=== PATIENT | male | born 1990 | race African-American/Black ===

== ENCOUNTER 2024-01-17 13:20 | Observation (INO) | payer OTHER ==
--- NOTE | 2024-01-17 13:58 | ED ---
Abdominal Pain HPI - General Source: patient, RN notes reviewed Mode of arrival: ambulatory Limitations: no limitations <Heavenly Bass - Last Filed: 01/17/24 13:57> - General Source: patient, RN notes reviewed Mode of arrival: ambulatory Limitations: no limitations <Narda Vences - Last Filed: 01/18/24 05:20> - General Chief Complaint: Abdominal Pain Stated Complaint: Post-op complications Time Seen by Provider: 01/17/24 13:57 - History of Present Illness Initial Comments: Quick Note: This is a 33-year-old male who presents to the emergency department for abdominal pain, constipation, and difficulty with urination. Symptoms started 2 days ago. States that whenever he tries to have a bowel movement it is incredibly painful. (Heavenly Bass) 33-year-old male presents to the emergency department for evaluation of abdominal pain and constipation. Patient states that the symptoms have been going on for the last 4 days. He notes that he has not had a bowel movement in 4 days. Patient states that most of his pain is in his lower abdomen and rectum when he attempts to have a bowel movement. He does admit to passing flatulence. He denies fever, admits to chills. Denies nausea, vomiting. (Narda Vences) - Related Data Allergies Allergy/AdvReac Type Severity Reaction Status Date / Time acetaminophen [From Tylenol] Allergy Nausea & Verified 01/17/24 13:42 Vomiting & Diarrhea haloperidol [From Haldol] Allergy Nausea & Verified 01/17/24 13:42 Vomiting prochlorperazine Allergy Nausea & Verified 01/17/24 13:42 [From Compazine] Vomiting metoclopramide [From Reglan] AdvReac Nausea & Verified 01/17/24 13:42 Vomiting & Diarrhea Review of Systems ROS Other: All systems not noted in ROS Statement are negative. <Heavenly Bass - Last Filed: 01/17/24 13:57> ROS Other: All systems not noted in ROS Statement are negative. <Narda Vences - Last Filed: 01/18/24 05:20> ROS Statement: Those systems with pertinent positive or pertinent negative responses have been documented in the HPI. Past Medical History Past Medical History: Asthma, Hypertension History of Any Multi-Drug Resistant Organisms: None Reported Past Surgical History: Joint Replacement, Orthopedic Surgery Past Psychological History: No Psychological Hx Reported Smoking Status: Current every day smoker Past Alcohol Use History: None Reported Past Drug Use History: Marijuana <Heavenly Bass - Last Filed: 01/17/24 13:57> General Exam Limitations: no limitations <Heavenly Bass - Last Filed: 01/17/24 13:57> Limitations: no limitations General appearance: alert, in no apparent distress Head exam: Present: atraumatic, normocephalic, normal inspection Eye exam: Present: normal appearance, PERRL, EOMI. Absent: scleral icterus, conjunctival injection, periorbital swelling ENT exam: Present: normal exam, mucous membranes moist Respiratory exam: Present: normal lung sounds bilaterally. Absent: respiratory distress, wheezes, rales, rhonchi, stridor Cardiovascular Exam: Present: regular rate, normal rhythm, normal heart sounds. Absent: systolic murmur, diastolic murmur, rubs, gallop, clicks GI/Abdominal exam: Present: distended, tenderness, hyperactive bowel sounds. Absent: guarding, rebound, rigid Extremities exam: Present: normal inspection, full ROM, normal capillary refill. Absent: tenderness, pedal edema, joint swelling, calf tenderness Neurological exam: Present: alert, oriented X3 Psychiatric exam: Present: normal affect, normal mood Skin exam: Present: warm, dry, intact, normal color. Absent: rash <Narda Vences - Last Filed: 01/18/24 05:20> - General Exam Comments Initial Comments: Visual Physical Exam Vital signs reviewed General: Well-appearing, nontoxic, no acute distress. Head: Normocephalic, atraumatic Eyes: PERRLA, EOMI ENT: Airway patent Chest: Nonlabored breathing Skin: No visual rash, normal skin tone Neuro: Alert and oriented 3 Musculoskeletal: No gross abnormalities (Heavenly Bass) Course Vital Signs 01/17/24 01/17/24 01/17/24 13:38 18:35 22:14 Temperature 97.6 F 99.9 F H Pulse Rate 91 67 60 Respiratory 20 16 18 Rate Blood Pressure 151/105 139/103 121/62 O2 Sat by Pulse 99 98 96 Oximetry 01/17/24 01/18/24 23:25 01:03 Temperature Pulse Rate 62 59 L Respiratory 16 18 Rate Blood Pressure 140/84 134/99 O2 Sat by Pulse 97 Oximetry Medical Decision Making <Heavenly Bass - Last Filed: 01/17/24 13:57> - Lab Data Result diagrams: 01/17/24 18:54 01/17/24 18:54 <FrankietyeshaNarda - Last Filed: 01/18/24 05:20> - Medical Decision Making I performed the QuickNote portion of this chart. Signed Heavenly Bass PA-C. (Heavenly Bass) Was pt. sent in by a medical professional or institution ([facility], [facility], urgent care, hospital, or long term...) When possible be specific @ -No Did you speak to anyone other than the patient for history (EMS, parent, family, police, friend...)? What history was obtained from this source @ -No Did you review nursing and triage notes (agree or disagree)? Why? @ -I reviewed and agree with nursing and triage notes Were old charts reviewed (outside hosp., previous admission, EMS record, old EKG, old radiological studies, urgent care reports/EKG's, long term records)? Report findings @ -No old charts were reviewed Differential Diagnosis (chest pain, altered mental status, abdominal pain women, abdominal pain men, vaginal bleeding, weakness, fever, dyspnea, syncope, headache, dizziness, GI bleed, back pain, seizure, CVA, palpatations, mental health, musculoskeletal)? @ -Differential Abdominal Pain Men: Appendicitis, cholecystitis, diverticulosis, ischemic bowel, pancreatitis, hepatitis, UTI, gastroenteritis, AAA, incarcerated hernia, bowel obstruction, constipation, inflammatory bowel, hepatitis, peptic ulcer disease, splenic infarction, perforated viscus, testicular torsion, this is not meant to be an all-inclusive list EKG interpreted by me (3pts min.). @ -None X-rays interpreted by me (1pt min.). @ -KUB x-ray shows large stool burden with nonobstructive bowel gas pattern CT interpreted by me (1pt min.). @ -CT abdomen pelvis shows large stool burden, stool within the rectum with wall thickening, consistent with stercoral colitis U/S interpreted by me (1pt. min.). @ -None done What testing was considered but not performed or refused? (CT, X-rays, U/S, labs)? Why? @ -None What meds were considered but not given or refused? Why? @ -None Did you discuss the management of the patient with other professionals (professionals i.e. , PA, [facility], lab, RT, psych nurse, social media marketing manager, sludge control operator, teacher, purchasing officer, case fitter)? Give summary @ -Management discussed with surgery, Dr. Cao patient can trial outpatient treatment versus inpatient with surgery in consultation. Management discussed with [facility] who is accepting of the admission Was smoking cessation discussed for >3mins.? @ -No Was critical care preformed (if so, how long)? @ -No Were there social determinants of health that impacted care today? How? (Homel essness, low income, unemployed, alcoholism, drug addiction, transportation, low edu. Level, literacy, decrease access to med. care, [facility], rehab)? @ -No Was there de-escalation of care discussed even if they declined (Discuss DNR or withdrawal of care, Hospice)? DNR status @ -No What co-morbidities impacted this encounter? (DM, HTN, Smoking, COPD, CAD, Cancer, CVA, ARF, Chemo, Hep., AIDS, mental health diagnosis, sleep apnea, morbid obesity)? @ -None Was patient admitted / discharged? Hospital course, mention meds given and route, prescriptions, significant lab abnormalities, going to OR and other pertinent info. @ -Admitted observation. Patient presented to the emergency department for evaluation of abdominal pain and constipation. Laboratory studies obtained which show an unremarkable CBC, CMP, UA. Patient underwent KUB x-ray which showed a large stool burden. CT abdomen pelvis shows large stool burden, stool within the rectum with wall thickening consistent with stercoral colitis. This was discussed with surgery, Dr. Cao can trial outpatient treatment first inpatient with surgical consultation. Patient will likely remain in the hospital due to the discomfort. Discussed with patient that IV narcotic medication is going to make the problem worse. He was provided fluids and antibiotics for this issue. He will be admitted observation with surgical consultation. Patient understanding agreeable plan. Patient stable at time of admission. Case discussed with Dr. Lemon Undiagnosed new problem with uncertain prognosis? @ -No Drug Therapy requiring intensive monitoring for toxicity (Heparin, Nitro, Insulin, Cardizem)? @ -No Were any procedures done? @ -No Diagnosis/symptom? @ -Stercoral colitis Acute, or Chronic, or Acute on Chronic? @ -Acute Uncomplicated (without systemic symptoms) or Complicated (systemic symptoms)? @ -Uncomplicated Side effects of treatment? @ -No Exacerbation, Progression, or Severe Exacerbation? @ -No Poses a threat to life or bodily function? How? (Chest pain, USA, [place], pneumonia, PE, COPD, DKA, ARF, appy, cholecystitis, CVA, Diverticulitis, Homicidal, Suicidal, threat to staff... and all critical care pts) @ -No (Narda Vences) - Lab Data Lab Results 01/17/24 01/17/24 01/17/24 Range/Units 18:54 18:54 18:54 WBC 7.8 (3.8-10.6) k/uL RBC 4.73 (4.30-5.90) m/uL Hgb 13.7 (13.0-17.5) gm/dL Hct 43.6 (39.0-53.0) % MCV 92.2 (80.0-100.0) fL MCH 29.1 (25.0-35.0) pg MCHC 31.5 (31.0-37.0) g/dL RDW 13.6 (11.5-15.5) % Plt Count 461 H (150-450) k/uL MPV 7.4 Neutrophils % 71 % Lymphocytes % 19 % Monocytes % 5 % Eosinophils % 3 % Basophils % 1 % Neutrophils # 5.5 (1.3-7.7) k/uL Lymphocytes # 1.5 (1.0-4.8) k/uL Monocytes # 0.4 (0-1.0) k/uL Eosinophils # 0.2 (0-0.7) k/uL Basophils # 0.0 (0-0.2) k/uL Sodium 137 (137-145) mmol/L Potassium 4.0 (3.5-5.1) mmol/L Chloride 101 (98-107) mmol/L Carbon Dioxide 31 H (22-30) mmol/L Anion Gap 5 mmol/L BUN 7 L (9-20) mg/dL Creatinine 0.60 L (0.66-1.25) mg/dL Est GFR (CKD-EPI)AfAm >90 (>60 ml/min/1.73 sqM) Est GFR (CKD-EPI)NonAf >90 (>60 ml/min/1.73 sqM) Glucose 77 (74-99) mg/dL Plasma Lactic Acid Beau 1.3 (0.7-2.0) mmol/L Calcium 9.1 (8.4-10.2) mg/dL Total Bilirubin 0.3 (0.2-1.3) mg/dL AST 22 (17-59) U/L ALT 17 (4-49) U/L Alkaline Phosphatase 72 (38-126) U/L Total Protein 6.7 (6.3-8.2) g/dL Albumin 3.9 (3.5-5.0) g/dL Amylase 66 (30-110) U/L Lipase 25 (23-300) U/L Urine Color Urine Appearance (Clear) Urine pH (5.0-8.0) Ur Specific [place] (1.001-1.035) Urine Protein (Negative) Urine Glucose (UA) (Negative) Urine Ketones (Negative) Urine Blood (Negative) Urine Nitrite (Negative) Urine Bilirubin (Negative) Urine Urobilinogen (<2.0) mg/dL Ur Leukocyte Esterase (Negative) 01/17/24 Range/Units 19:35 WBC (3.8-10.6) k/uL RBC (4.30-5.90) m/uL Hgb (13.0-17.5) gm/dL Hct (39.0-53.0) % MCV (80.0-100.0) fL MCH (25.0-35.0) pg MCHC (31.0-37.0) g/dL RDW (11.5-15.5) % Plt Count (150-450) k/uL MPV Neutrophils % % Lymphocytes % % Monocytes % % Eosinophils % % Basophils % % Neutrophils # (1.3-7.7) k/uL Lymphocytes # (1.0-4.8) k/uL Monocytes # (0-1.0) k/uL Eosinophils # (0-0.7) k/uL Basophils # (0-0.2) k/uL Sodium (137-145) mmol/L Potassium (3.5-5.1) mmol/L Chloride (98-107) mmol/L Carbon Dioxide (22-30) mmol/L Anion Gap mmol/L BUN (9-20) mg/dL Creatinine (0.66-1.25) mg/dL Est GFR (CKD-EPI)AfAm (>60 ml/min/1.73 sqM) Est GFR (CKD-EPI)NonAf (>60 ml/min/1.73 sqM) Glucose (74-99) mg/dL Plasma Lactic Acid Beau (0.7-2.0) mmol/L Calcium (8.4-10.2) mg/dL Total Bilirubin (0.2-1.3) mg/dL AST (17-59) U/L ALT (4-49) U/L Alkaline Phosphatase (38-126) U/L Total Protein (6.3-8.2) g/dL Albumin (3.5-5.0) g/dL Amylase (30-110) U/L Lipase (23-300) U/L Urine Color Colorless Urine Appearance Clear (Clear) Urine pH 7.5 (5.0-8.0) Ur Specific [place] 1.011 (1.001-1.035) Urine Protein Negative (Negative) Urine Glucose (UA) Negative (Negative) Urine Ketones Negative (Negative) Urine Blood Negative (Negative) Urine Nitrite Negative (Negative) Urine Bilirubin Negative (Negative) Urine Urobilinogen <2.0 (<2.0) mg/dL Ur Leukocyte Esterase Negative (Negative) Disposition <Heavenly Bass - Last Filed: 01/17/24 13:57> Is patient prescribed a controlled substance at d/c from ED?: No <Narda Vences - Last Filed: 01/18/24 05:20> Clinical Impression: Stercoral colitis Disposition: ADMITTED IP TO THIS HOSP Condition: Stable
--- NOTE | 2024-01-17 14:28 | XR ---
EXAMINATION TYPE: XR KUB DATE OF EXAM: 01/17/2024 COMPARISON: NONE HISTORY: Constipation TECHNIQUE: One view abdominal series FINDINGS: The osseous structures are intact. The bowel gas pattern is nonspecific. Lung bases are clear. Exte nsive retained stool burden. Bilateral hip replacement surgery. IMPRESSION: 1. Nonspecific abdomen. No obstruction. Correlate for constipation.
[2024-01-17 19:00] LABS: Basophils % (A) 1 %; Eosinophils # (A) 0.2 k/uL (0-0.7); Eosinophils % (A) 3 %; HCT 43.6 % (39.0-53.0); HGB 13.7 gm/dL (13.0-17.5); Lymphocytes # (A) 1.5 k/uL (1.0-4.8); Lymphocytes % (A) 19 %; MCH 29.1 pg (25.0-35.0); MCHC 31.5 g/dL (31.0-37.0); MCV 92.2 fL (80.0-100.0); Mean Platelet Volume 7.4; Monocytes # (A) 0.4 k/uL (0-1.0); Monocytes % (A) 5 %; Neutrophils # (A) 5.5 k/uL (1.3-7.7); Neutrophils % (A) 71 %; Platelet Count 461 k/uL (150-450); RBC 4.73 m/uL (4.30-5.90); RDW 13.6 % (11.5-15.5); WBC 7.8 k/uL (3.8-10.6)
[2024-01-17 19:24] LABS: ALT 17 U/L (4-49); AST 22 U/L (17-59); African American GFR (CKD) >90 (>60 ml/min/1.73 sqM); Albumin 3.9 g/dL (3.5-5.0); Alkaline Phosphatase 72 U/L (38-126); Amylase 66 U/L (30-110); Anion Gap 5 mmol/L; Blood Urea Nitrogen 7 mg/dL (9-20); Calcium 9.1 mg/dL (8.4-10.2); Carbon Dioxide 31 mmol/L (22-30); Chloride 101 mmol/L (98-107); Glucose 77 mg/dL (74-99); Lipase 25 U/L (23-300); Non-African American GFR(CKD) >90 (>60 ml/min/1.73 sqM); Sodium 137 mmol/L (137-145); Total Bilirubin 0.3 mg/dL (0.2-1.3); Total Protein 6.7 g/dL (6.3-8.2)
[2024-01-17] MEDS: SODIUM CHLORIDE 0.9% 2,000 ML IV ONE (20:04)
[2024-01-17] MEDS: ONDANSETRON 4 MG/2 ML VIAL IVP STA (20:07)
[2024-01-17] MEDS: MORPHINE SULFATE 4 MG/ML SYRINGE IVP STA (20:08)
[2024-01-17 20:11] LABS: Appearance,Urine Clear (Clear); Bilirubin,Urine Negative (Negative); Blood,Urine Negative (Negative); Color,Urine Colorless; Glucose,Urine (UA) Negative (Negative); Ketones,Urine Negative (Negative); Leukocyte Esterase,Urine Negative (Negative); Nitrite,Urine Negative (Negative); PH, Urine 7.5 (5.0-8.0); Protein,Urine Negative (Negative); Specific Gravity,Urine 1.011 (1.001-1.035); Urobilinogen,Urine <2.0 mg/dL (<2.0)
--- NOTE | 2024-01-17 20:38 | CT ---
EXAMINATION TYPE: CT abdomen pelvis w con CT DLP: 837.7 mGycm, Automated exposure control for dose reduction was used. DATE OF EXAM: 01/17/2024 8:25 PM COMPARISON: None CLINICAL INDICATION:Male, 33 years old with history of abd pain, constipation; Constipation. TECHNIQUE: Axial CT abdomen pelvis w con;Sagittal and coronal reformats were created on a separate w orkstation. Contrast used:100 mL of Isovue 300 with IV Contrast, (none if empty) Oral contrast used: without Oral Contrast (none if empty) FINDINGS: LOWER CHEST: Unremarkable ABDOMEN LIVER: Unremarkable GALLBLADDER AND BILE DUCTS: Unremarkable. PANCREAS: Unremarkable. SPLEEN: Unremarkable. ADRENAL GLANDS: Unremarkable. KIDNEYS AND URETERS: Nonobstructing left renal calculi measuring up to 4 mm. No right renal calculi. No obstructive uropathy.. PELVIS BLADDER: Unremarkable REPRODUCTIVE: Unremarkable. ABDOMEN & PELVIS STOMACH AND BOWEL: No evidence of bowel obstruction. Large stool burden in the: Particularly rectum w ith fecaloma measuring up to 6.6 cm in transverse dimension. There is ome Fat stranding changes aroun d the rectum with wall thickening up to 4 mm. PERITONEUM/RETROPERITONEUM: No evidence of pneumoperitoneum or free fluid. VASCULATURE: No evidence of aortic aneurysm. MUSCULOSKELETAL: No acute osseous abnormalities LYMPH NODES: No gross evidence for lymphadenopathy. Bilateral hip arthroplasties appear intact. SOFT TISSUE/ABDOMINAL WALL: Unremarkable IMPRESSION: 1. Large stool burden in the rectum with wall thickening and findings suggestive of stercoral coliti s. Surgical consultation recommended. 2. Nonobstructing left renal calculi.
[2024-01-17] MEDS: KETOROLAC 15 MG/ML 1 ML VIAL IVP STA (23:12)
[2024-01-17] MEDS: SODIUM CHLORIDE 0.9% 1,000 ML IV SCH (23:14)
[2024-01-17] MEDS: metroNIDAZOLE-NS PMX 500 MG in SALINE 1 100ML.BAG IVPB STA (23:59)
[2024-01-18] MEDS ORDERED: IBUPROFEN 400 MG TAB PO PRN (00:05)
[2024-01-18] MEDS ORDERED: NALOXONE 0.4 MG/ML 1 ML VIAL IV PRN (00:05)
[2024-01-18] MEDS ORDERED: ONDANSETRON 4 MG/2 ML VIAL IVP PRN (00:05)
[2024-01-18] MEDS: MORPHINE SULFATE 2 MG/ML SYRINGE IVP STA (02:16)
--- NOTE | 2024-01-18 08:02 | P.CON ---
Consult Note - . Consult date: 01/17/24 Assessment/Plan:: 33-year-old male presents to the emergency department for evaluation of abdominal pain and constipation. Patient states that the symptoms have been going on for the last 4 days. He notes that he has not had a bowel movement in 4 days. Patient states that most of his pain is in his lower abdomen and rectum when he attempts to have a bowel movement. He does admit to passing flatulence. He denies fever, admits to chills. Denies nausea, vomiting. Review of Systems Those systems with pertinent positive or pertinent negative responses have been documented in the HPI. Past Medical History Past Medical History: Asthma, Hypertension History of Any Multi-Drug Resistant Organisms: None Reported Past Surgical History: Joint Replacement, Orthopedic Surgery Past Psychological History: No Psychological Hx Reported Smoking Status: Current every day smoker Past Alcohol Use History: None Reported Past Drug Use History: Marijuana General Exam General appearance: alert, in no apparent distress Head exam: Present: atraumatic, normocephalic, normal inspection Eye exam: Present: normal appearance, PERRL, EOMI. Absent: scleral icterus, conjunctival injection, periorbital swelling ENT exam: Present: normal exam, mucous membranes moist Respiratory exam: Present: normal lung sounds bilaterally. Absent: respiratory distress, wheezes, rales, rhonchi, stridor Cardiovascular Exam: Present: regular rate, normal rhythm, normal heart sounds. Absent: systolic murmur, diastolic murmur, rubs, gallop, clicks GI/Abdominal exam: Present: distended, tenderness, hyperactive bowel sounds. Absent: guarding, rebound, rigid Extremities exam: Present: normal inspection, full ROM, normal capillary refill. Absent: tenderness, pedal edema, joint swelling, calf tenderness Neurological exam: Present: alert, oriented X3 Psychiatric exam: Present: normal affect, normal mood Skin exam: Present: warm, dry, intact, normal color. Absent: rash 33 year old male with constipation,large stool burden - Bowel Regiment started - Pain and Nausea Control - Will follow bowel function
[2024-01-18] MEDS ORDERED: IPRATROPIUM-ALBUTEROL 3 ML NEB INHALATION PRN (08:46)
[2024-01-18] MEDS: bisacodyL 10 MG SUPP RECTAL SCH (09:41)
[2024-01-18] MEDS: DOCUSATE 100 MG CAP PO SCH (09:44)
[2024-01-18] MEDS: polyethylene glycoL 3350 17 GM POWD.PACK PO SCH (09:45)
[2024-01-18] MEDS: KETOROLAC 15 MG/ML 1 ML VIAL IVP PRN (09:49)
[2024-01-18] MEDS: LACTULOSE 20 GM/30 ML CUP PO ONE (11:20)
--- NOTE | 2024-01-18 11:21 | XR ---
EXAMINATION TYPE: XR Hip Complete LT DATE OF EXAM: 01/18/2024 10:45 AM CLINICAL INDICATION:Male, 33 years old with history of Left hip pain; COMPARISON: 01/17/2024 TECHNIQUE: XR Hip Complete LT; hip was examined in the frontal and lateral projections and a AP pelvi s. FINDINGS: Post arthroplasty changes, hardware is intact, alignment is appropriate. No evidence of fra cture. No evidence of any acute osseous pathology or joint dislocation. IMPRESSION: Hip arthroplasty with hardware intact and in appropriate alignment. No acute fracture.
--- NOTE | 2024-01-18 11:29 | P.HPIM ---
History of Present Illness 33-year-old male was sent in from [place] for abdominal pain found to have constipation patient did have a bowel movement for last 4 days. Patient has opiate abuse and cocaine abuse history. Patient has a left hip arthroplasty and patient is complaining of severe pain in that area although x-ray did not show any malalignment and patient left hip is completely healed on exam. Patient had a small bowel movement today. Although patient does not want to take any medications for constipation. Patient constantly request for oxycodone and other opiates for pain. Patient is presently on Toradol for pain. Patient claims that he is on oxycodone at home although this was not verified. Patient is not having any opiate withdrawals at this time. REVIEW OF SYSTEMS: CONSTITUTIONAL: No fever, no malaise, no fatigue. HEENT: No recent visual problems or hearing problems. Denied any sore throat. CARDIOVASCULAR: No chest pain, orthopnea, PND, no palpitations, no syncope. PULMONARY: No shortness of breath, no cough, no hemoptysis. GASTROINTESTINAL: No diarrhea, no nausea, no vomiting. NEUROLOGICAL: No headaches, no weakness, no numbness. HEMATOLOGICAL: Denies any bleeding or petechiae. GENITOURINARY: Denies any burning micturition, frequency, or urgency. MUSCULOSKELETAL/RHEUMATOLOGICAL: Denies any joint pain, swelling, or any muscle pain. ENDOCRINE: Denies any polyuria or polydipsia. The rest of the 14-point review of systems is negative. PHYSICAL EXAMINATION: GENERAL: The patient is alert and oriented x3, not in any acute distress. Well developed, well nourished. HEENT: Pupils are round and equally reacting to light. EOMI. No scleral icterus. No conjunctival pallor. Normocephalic, atraumatic. No pharyngeal erythema. No thyromegaly. CARDIOVASCULAR: S1 and S2 present. No murmurs, rubs, or gallops. PULMONARY: Chest is clear to auscultation, no wheezing or crackles. ABDOMEN: Soft, nontender, nondistended, normoactive bowel sounds. No palpable organomegaly. MUSCULOSKELETAL: No joint swelling or deformity. EXTREMITIES: No cyanosis, clubbing, or pedal edema. NEUROLOGICAL: Gross neurological examination did not reveal any focal deficits. SKIN: No rashes. Assessment and plan -Abdominal pain: Secondary to constipation patient does not have any opiate withdrawals patient can continue his Toradol, patient will not require any opiates at this time -Left hip pain subjective there is no malalignment. -Cocaine on low opiate abuse history patient will be discharged back to [place] once he has a bowel movement. If patient does not take medications for constipation nothing much can be done and patient will be discharged back to [place]. DVT prophylaxis: Early ambulation Past Medical History Past Medical History: Asthma History of Any Multi-Drug Resistant Organisms: None Reported Past Surgical History: Joint Replacement, Orthopedic Surgery Additional Past Surgical History / Comment(s): bilateral hip replacement Past Psychological History: No Psychological Hx Reported Smoking Status: Current every day smoker Past Alcohol Use History: None Reported Past Drug Use History: Marijuana Medications and Allergies Allergies Allergy/AdvReac Type Severity Reaction Status Date / Time acetaminophen [From Tylenol] Allergy Nausea & Verified 01/17/24 13:42 Vomiting & Diarrhea haloperidol [From Haldol] Allergy Nausea & Verified 01/17/24 13:42 Vomiting prochlorperazine Allergy Nausea & Verified 01/17/24 13:42 [From Compazine] Vomiting metoclopramide [From Reglan] AdvReac Nausea & Verified 01/17/24 13:42 Vomiting & Diarrhea Physical Exam Vitals: Vital Signs Temp Pulse Pulse Resp BP BP Pulse Ox 01/18/24 07:20 98.5 F 60 17 152/82 99 01/18/24 02:00 98.2 F 80 15 146/75 97 01/18/24 01:03 59 L 18 134/99 97 01/17/24 23:25 62 16 140/84 01/17/24 22:14 60 18 121/62 96 01/17/24 18:35 99.9 F H 67 16 139/103 98 01/17/24 13:38 97.6 F 91 20 151/105 99 Intake and Output 01/17/24 01/18/24 01/18/24 22:59 06:59 14:59 Intake Total 200 Output Total 1400 500 Balance -1400 -300 Intake: Oral 200 Output: Urine 1400 500 Other: Voiding Method Toilet Weight 81.647 kg Results CBC & Chem 7: 01/17/24 18:54 01/17/24 18:54 Labs: Abnormal Lab Results - Last 24 Hours (Table) 06/15/24 06/15/24 Range/Units 18:54 18:54 Plt Count 461 H (150-450) k/uL Carbon Dioxide 31 H (22-30) mmol/L BUN 7 L (9-20) mg/dL Creatinine 0.60 L (0.66-1.25) mg/dL
[2024-01-18] MEDS: IPRATROPIUM-ALBUTEROL 3 ML NEB INHALATION SCH (11:37)
--- NOTE | 2024-01-18 11:53 | P.DS ---
Providers Date of admission: 01/18/24 00:07 Attending physician: Karen Porter Consults: 01/18/24 00:05 Consult Physician Routine Consulting Provider: Uche Cao Consult Reason/Comments: stercoral colitis Do you want consulting provider notified?: Yes, Notify in am Primary care physician: AIDAN Hospital Course: 33-year-old male was sent in from [place] for abdominal pain found to have constipation patient did have a bowel movement for last 4 days. Patient has opiate abuse and cocaine abuse history. Patient has a left hip arthroplasty and patient is complaining of severe pain in that area although x-ray did not show any malalignment and patient left hip is completely healed on exam. Patient had a small bowel movement today. Although patient does not want to take any med ications for constipation. Patient constantly request for oxycodone and other opiates for pain. Patient is presently on Toradol for pain. Patient claims that he is on oxycodone at home although this was not verified. Patient is not having any opiate withdrawals at this time. PHYSICAL EXAMINATION: GENERAL: The patient is alert and oriented x3, not in any acute distress. Well developed, well nourished. HEENT: Pupils are round and equally reacting to light. EOMI. No scleral icterus. No conjunctival pallor. Normocephalic, atraumatic. No pharyngeal erythema. No thyromegaly. CARDIOVASCULAR: S1 and S2 present. No murmurs, rubs, or gallops. PULMONARY: Chest is clear to auscultation, no wheezing or crackles. ABDOMEN: Soft, nontender, nondistended, normoactive bowel sounds. No palpable organomegaly. MUSCULOSKELETAL: No joint swelling or deformity. EXTREMITIES: No cyanosis, clubbing, or pedal edema. NEUROLOGICAL: Gross neurological examination did not reveal any focal deficits. SKIN: No rashes. Assessment and plan -Abdominal pain: Secondary to constipation patient does not have any opiate withdrawals patient can continue his Toradol, patient will not require any opiates at this time -Left hip pain subjective there is no malalignment. -Cocaine on low opiate abuse history patient will be discharged back to [facility] once he has a bowel movement. If patient does not take medications for constipation nothing much can be done and patient will be discharged back to [facility]. DVT prophylaxis: Early ambulation Patient Condition at Discharge: Stable Plan - Discharge Summary Follow up Appointment(s)/Referral(s): Nonstaff,Physician [REFERRING] - 1-2 days Discharge Disposition: OTHER INSTITUTION NOT DEFINED
[2024-01-18] MEDS: LACTULOSE 20 GM/30 ML CUP PO SCH (19:58)
[2024-01-18] MEDS: bisacodyL 10 MG SUPP RECTAL STA (19:59)
[2024-01-19] MEDS ORDERED: guaiFENesin SYRUP 100MG/5ML 200 MG/10 ML CUP PO PRN (10:44)
[2024-01-19] MEDS ORDERED: BENZONATATE 100 MG CAP PO PRN (10:44)
[2024-01-19] MEDS: DICLOFENAC SODIUM GEL 50 GM TUBE TOPICAL SCH (13:11)
--- NOTE | 2024-01-19 14:23 | P.PN ---
Subjective Progress Note Date: 01/19/24 CHIEF COMPLAINT: Constipation HISTORY OF PRESENT ILLNESS: Patient presented with abdominal pain and const ipation. Patient reported he had a small bowel movement. His main complaint is left hip pain. He denies any nausea or vomiting. Afebrile. Per nursing staff patient has been noncompliant with medication. Patient seen and examined with Dr. Broussard PHYSICAL EXAM: VITAL SIGNS: Reviewed GENERAL: Well-developed in no acute distress. HEENT: No sclera icterus. Extraocular movements grossly intact. Moist buccal mucosa. Head is atraumatic, normocephalic. Hears conversational speech. No nasal drainage. NECK: Supple without lymphadenopathy. CHEST: Non-labored respirations and equal bilateral excursions. CARDIOVASCULAR: Palpable 2+ radial pulses. ABDOMEN: Soft. Nondistended. MUSCULOSKELETAL: No clubbing or cyanosis. NEUROLOGIC: No focal or lateralizing signs. Cranial nerves II through XII grossly intact. PSYCH: Appropriate affect. Alert and oriented to person, place and time. SKIN: Well perfused. Good skin turgor. ASSESSMENT: 1. Constipation. CT with large stool burden in the rectum with wall thickening 2. Left hip pain PLAN: -Fleet enema ordered for constipation. Patient educated thoroughly the importance on being compliant with treatment. Per Nurse, patient is telling her that he does not want her assistance with the Fleet enema and that he will do it himself. Physician Stonemason Supervisor note has been reviewed by physician. Signing provider agrees with the documented findings, assessment, and plan of care. Objective - Vital Signs Vital signs: Vital Signs Temp 98.1 F 01/19/24 02:00 Pulse 68 01/19/24 11:39 Resp 17 01/19/24 08:00 BP 135/89 01/19/24 02:00 Pulse Ox 98 01/19/24 02:00 FiO2 Intake & Output 01/18/24 01/19/24 01/19/24 18:59 06:59 18:59 Intake Total 400 Output Total 900 Balance -500 Intake: Oral 400 Output: Urine 900 Other: Voiding Method Toilet Toilet Toilet # Voids 2 # Bowel Movements 0 - Labs CBC & Chem 7: 01/17/24 18:54 01/17/24 18:54 Labs: Microbiology - Last 24 Hours (Table) 01/17/24 23:00 Blood Culture - Preliminary Blood 01/17/24 23:15 Blood Culture - Preliminary Blood
[2024-01-19 15:00] VITALS: BP 136/84; RESP 15; TEMP 99
[2024-01-19] MEDS: NA PHOS,M-B/NA PHOS,DI-BA 133 ML ENEMA RECTAL STA (15:21)
[2024-01-19 15:27] VITALS: PULSE 76
--- NOTE | 2024-01-21 15:57 | P.DS ---
Providers Date of admission: 01/18/24 00:07 Attending physician: Karen Porter Consults: 01/18/24 00:05 Consult Physician Routine Consulting Provider: Uche Cao Consult Reason/Comments: stercoral colitis Do you want consulting provider notified?: Yes, Notify in am Primary care physician: AIDAN Hospital Course: Final Diagnosis Abdominal pain secondary to constipation from continued opiate abuse and use Bilateral hip pain patient recently underwent bilateral hip arthroplasty secondary to avascular necrosis with a left hip x-ray showing no misalignment Polysubstance abuse with cocaine and opioid addiction patient has been at [facility] for rehabilitation Discharge Disposition Patient is stable for return to [facility] and will need to continue on bowel regimen. He is offered lactulose and MiraLAX daily. Patient is also given Voltaren gel which can also be bought [id number] for his bilateral hip pain. To avoid narcotics at this time. Hospital Course 33-year-old male was sent in from [facility] for abdominal pain found to have constipation patient did have a bowel movement for last 4 days. Patient has opiate abuse and cocaine abuse history. Patient has a bilateral hip arthroplasty and patient is complaining of severe pain in that area although x- ray did not show any malalignment and patient left hip is completely healed on exam. Reports this was secondary to avascular necrosis and is unsure who his orthopedic surgeon was. A maps was pulled and it appears patient has been getting oxycodone for this hip pain but has not received any in the last [address] Patient had a small bowel movement. Although patient does not want to take any medications for constipation. Patient constantly request for oxycodone and other opiates for pain. Patient is presently on Toradol for pain. Patient claims that he is on oxycodone at home although this was not verified. Patient is not having any opiate withdrawals at this time. Patient continues to request narcotics and has been refusing bowel regimen and other attempts at alleviation for pain including Voltaren gel and nonnarcotic pain medication. Patient had a large bowel movement claims that he was having some slight bleeding from this although states that he does have a history of hemorrhoids which if he is having chronic constipation this is likely the case. The stool itself was not bloody in nature there was a slight red tinge on the toilet and on the toilet paper. Patient refused a rectal examination. His hemoglobin has remained stable at 15.3 hemodynamically he is stable. Patient is cleared for discharge back to [facility]. Please see medication reconciliation for a list of current medications. Thank you for allowing us to participate in the care of this patient. The impression and plan of care has been dictated by Diane Crowell Nurse Practitioner as directed. Dr. Lakisha MD I have performed a history and physical examination and medical decision making of this patient, discussed the same with the dictator, and agree with the dictators assessment and plan as written, documented as a scribe. Based on total visit time, I have performed more than 50% of this visit. Patient Condition at Discharge: Stable Plan - Discharge Summary New Discharge Prescriptions: New Lactulose [Cephulac] 20 gm PO DAILY PRN #150 ml PRN Reason: Constipation polyethylene glycoL 3350 [Miralax] 17 gm PO DAILY packet Diclofenac Sodium Gel [Voltaren 1% Gel] 4 gm TOPICAL QID gm Continue Albuterol Nebulized [Ventolin Nebulized] 2.5 mg INHALATION RT-Q6H PRN PRN Reason: Shortness Of Breath Albuterol Sulfate [Ventolin HFA] 1 - 2 puff INHALATION RT-Q6H PRN PRN Reason: Shortness Of Breath Fluticasone Nasal [place] [Flonase Nasal [place]] 2 spray EA NOSTRIL DAILY hydrOXYzine pamoate [Vistaril] 50 mg PO QID Meloxicam [Mobic] 15 mg PO DAILY diphenhydrAMINE [Benadryl] 50 mg PO QID Discontinued cloNIDine HCL [Catapres] 0.1 mg PO QID Promethazine HCl/Codeine [Promethazine HCl/Codeine Syrup] 5 ml PO Q8HR PRN PRN Reason: Cough Discharge Medication List Albuterol Nebulized [Ventolin Nebulized] 2.5 mg INHALATION RT-Q6H PRN 01/18/24 [History] Albuterol Sulfate [Ventolin HFA] 1 - 2 puff INHALATION RT-Q6H PRN 01/18/24 [History] Fluticasone Nasal [place] [Flonase Nasal [place]] 2 spray EA NOSTRIL DAILY 01/18/24 [History] Meloxicam [Mobic] 15 mg PO DAILY 01/18/24 [History] diphenhydrAMINE [Benadryl] 50 mg PO QID 01/18/24 [History] hydrOXYzine pamoate [Vistaril] 50 mg PO QID 01/18/24 [History] Diclofenac Sodium Gel [Voltaren 1% Gel] 4 gm TOPICAL QID gm 01/19/24 [Rx] Lactulose [Cephulac] 20 gm PO DAILY PRN #150 ml 01/19/24 [Rx] polyethylene glycoL 3350 [Miralax] 17 gm PO DAILY packet 01/19/24 [Rx] Follow up Appointment(s)/Referral(s): Nonstaff,Physician [REFERRING] - 1-2 days Activity/Diet/Wound Care/Special Instructions: Return to [facility] Follow up with your PCP and your orthopedic doctor on discharge. Discharge Disposition: OTHER INSTITUTION NOT DEFINED
== END 2024-01-19 15:40 | disposition other institution (70) ==
LOC: EDBD → EC 13:20 → 6NMEDSUR 01-18 00:07
PROVIDERS: ADMIT Internal Medicine; ATTEND Internal Medicine
DX: K59.00 Constipation, unspecified (principal); F14.10 Cocaine abuse, uncomplicated; F11.10 Opioid abuse, uncomplicated; Z96.643 Presence of artificial hip joint, bilateral; M87.9 Osteonecrosis, unspecified; F10.20 Alcohol dependence, uncomplicated; F17.200 Nicotine dependence, unspecified, uncomplicated
CPT/HCPCS: 36415; 73502; 74018; 74177; 80053; 81003; 82150; 83605; 83690; 85025; 87040; 94640; 96365; 96366; 96367; 96375; 99285

== ENCOUNTER 2024-04-22 15:03 | Emergency (ER) | payer OTHER ==
[2024-04-22 15:09] VITALS: TEMP 98.3
--- NOTE | 2024-04-22 15:46 | ED ---
Abdominal Pain HPI - General Chief Complaint: Abdominal Pain Stated Complaint: mental health Time Seen by Provider: 04/22/24 15:20 Source: patient, RN notes reviewed Mode of arrival: ambulatory Limitations: no limitations - History of Present Illness Initial Comments: 33-year-old male presents emergency department with multiple complaints. On initial conversation with patient he states that he has bilateral hip pain and has had bilateral total hip replacements due to prolonged steroid use due to asthma. On reevaluation patient states that he has been experiencing a cough and is concerned that his abdominal pain has been hurting. He also states that he is here for a medication refill for his Phenergan and that aids in his congestion relief and nausea. Currently denies steroid use, fevers, chills, diarrhea or constipation. - Related Data Home Medications Medication Instructions Recorded Confirmed Albuterol Nebulized [Ventolin 2.5 mg INHALATION RT-Q6H PRN 01/18/24 01/18/24 Nebulized] Albuterol Sulfate [Ventolin HFA] 1 - 2 puff INHALATION RT-Q6H PRN 01/18/24 01/18/24 Fluticasone Nasal [place] [Flonase 2 spray EA NOSTRIL DAILY 01/18/24 01/18/24 Nasal [place]] Meloxicam [Mobic] 15 mg PO DAILY 01/18/24 01/18/24 diphenhydrAMINE [Benadryl] 50 mg PO QID 01/18/24 01/18/24 hydrOXYzine pamoate [Vistaril] 50 mg PO QID 01/18/24 01/18/24 Previous Rx's Medication Instructions Recorded Diclofenac Sodium Gel [Voltaren 1% 4 gm TOPICAL QID gm 01/19/24 Gel] Lactulose [Cephulac] 20 gm PO DAILY PRN #150 ml 01/19/24 polyethylene glycoL 3350 [Miralax] 17 gm PO DAILY packet 01/19/24 Budesonide/Formoterol Fumarate 1 puff INHALATION DAILY #1 each 04/22/24 [Symbicort 80-4.5 Mcg Inhaler] Fluticasone Nasal [place] [Flonase 2 spr EA NOSTRIL DAILY #16 gm 04/22/24 Nasal [place]] Promethazine HCl [Phenergan Syrup] 5 ml PO BID #50 ml 04/22/24 predniSONE 50 mg PO DAILY #5 tab 04/22/24 Allergies Allergy/AdvReac Type Severity Reaction Status Date / Time acetaminophen [From Tylenol] Allergy Nausea & Verified 04/22/24 15:09 Vomiting & Diarrhea haloperidol [From Haldol] Allergy Nausea & Verified 04/22/24 15:09 Vomiting prochlorperazine Allergy Nausea & Verified 04/22/24 15:09 [From Compazine] Vomiting metoclopramide [From Reglan] AdvReac Nausea & Verified 04/22/24 15:09 Vomiting & Diarrhea Review of Systems ROS Statement: Those systems with pertinent positive or pertinent negative responses have been documented in the HPI. ROS Other: All systems not noted in ROS Statement are negative. Past Medical History Past Medical History: Asthma History of Any Multi-Drug Resistant Organisms: None Reported Past Surgical History: Joint Replacement, Orthopedic Surgery Additional Past Surgical History / Comment(s): bilateral hip replacement Past Psychological History: No Psychological Hx Reported Smoking Status: Current every day smoker Past Alcohol Use History: None Reported Past Drug Use History: Marijuana General Exam Limitations: no limitations General appearance: alert, in no apparent distress, anxious Eye exam: Present: normal appearance, PERRL, EOMI. Absent: scleral icterus, conjunctival injection, periorbital swelling ENT exam: Present: normal exam, mucous membranes moist Neck exam: Present: normal inspection. Absent: tenderness, meningismus, lymphadenopathy Respiratory exam: Present: normal lung sounds bilaterally, wheezes, rhonchi. Absent: respiratory distress, rales, stridor Cardiovascular Exam: Present: regular rate, normal rhythm, normal heart sounds. Absent: systolic murmur, diastolic murmur, rubs, gallop, clicks GI/Abdominal exam: Present: soft, normal bowel sounds. Absent: distended, tenderness, guarding, rebound, rigid Extremities exam: Present: normal inspection, full ROM, normal capillary refill. Absent: tenderness, pedal edema, joint swelling, calf tenderness Back exam: Present: normal inspection Psychiatric exam: Present: normal affect, normal mood, agitated Skin exam: Present: warm, dry, intact, normal color. Absent: rash Course Vital Signs 04/22/24 04/22/24 15:07 17:38 Temperature 98.3 F 98.3 F Pulse Rate 68 70 Respiratory 20 18 Rate Blood Pressure 140/73 136/82 O2 Sat by Pulse 99 98 Oximetry Medical Decision Making - Medical Decision Making Was pt. sent in by a medical professional or institution ([facility], [facility], urgent care, hospital, or shelter...) When possible be specific @ -No Did you speak to anyone other than the patient for history (EMS, parent, family, police, friend...)? What history was obtained from this source @ -No Did you review nursing and triage notes (agree or disagree)? Why? @ -I reviewed and agree with nursing and triage notes Were old charts reviewed (outside hosp., previous admission, EMS record, old EKG, old radiological studies, urgent care reports/EKG's, shelter records)? Report findings @ -No old charts were reviewed Differential Diagnosis (chest pain, altered mental status, abdominal pain women, abdominal pain men, vaginal bleeding, weakness, fever, dyspnea, syncope, headache, dizziness, GI bleed, back pain, seizure, CVA, palpatations, mental health, musculoskeletal)? @ -COVID 19, RSV, influenza, pneumonia, acute bronchitis, URI, this list is not all inclusive EKG interpreted by me (3pts min.). @ -None X-rays interpreted by me (1pt min.). @ -Chest x-ray no acute cardiopulmonary process or disease noted CT interpreted by me (1pt min.). @ -None done U/S interpreted by me (1pt. min.). @ -None done What testing was considered but not performed or refused? (CT, X-rays, U/S, labs)? Why? @ -None What meds were considered but not given or refused? Why? @ -None Did you discuss the management of the patient with other professionals (professionals i.e. [facility], [facility], lab, RT, psych nurse, social worker aide, mercerizer machine operator, teacher, executive vice president and chief operating officer, case operator)? Give summary @ -No Was smoking cessation discussed for >3mins.? @ -No Was critical care preformed (if so, how long)? @ -No Were there social determinants of health that impacted care today? How? (Homelessness, low income, unemployed, alcoholism, drug addiction, trans portation, low edu. Level, literacy, decrease access to med. care, correction, rehab)? @ -No Was there de-escalation of care discussed even if they declined (Discuss DNR or withdrawal of care, Hospice)? DNR status @ -No What co-morbidities impacted this encounter? (DM, HTN, Smoking, COPD, CAD, Cancer, CVA, ARF, Chemo, Hep., AIDS, mental health diagnosis, sleep apnea, morbid obesity)? @ -None Was patient admitted / discharged? Hospital course, mention meds given and route, prescriptions, significant lab abnormalities, going to OR and other pertinent info. @ -discharge. 33-year-old male with multiple complaints. Patient physical exam reveals bilateral respiratory wheezing and rails. Patient will be evaluated for possible pneumonia and laboratory studies. On reevaluation as patient is going to be discharged she states that he actually reported from [facility] and is requesting his medications to be sent to [facility] pharmacy. Patient is sent a prescription for Flonase, Phenergan and for Advair. Recommend that patient follows up with primary care provider outpatient. discussed with Dr. Nevarez Undiagnosed new problem with uncertain prognosis? @ -No Drug Therapy requiring intensive monitoring for toxicity (Heparin, Nitro, Insulin, Cardizem)? @ -No Were any procedures done? @ -No Diagnosis/symptom? @ -asthma exacerbation Acute, or Chronic, or Acute on Chronic? @ -Acute Uncomplicated (without systemic symptoms) or Complicated (systemic symptoms)? @ -uncomplicated Side effects of treatment? @ -No Exacerbation, Progression, or Severe Exacerbation? @ -No Poses a threat to life or bodily function? How? (Chest pain, USA, MD, pneumonia, PE, COPD, DKA, ARF, appy, cholecystitis, CVA, Diverticulitis, Homicidal, Suicidal, threat to staff... and all critical care pts) @ -No - Lab Data Result diagrams: 04/22/24 16:03 04/22/24 16:03 Lab Results 04/22/24 04/22/24 04/22/24 Range/Units 16:03 16:03 16:03 WBC 4.6 (3.8-10.6) k/uL RBC 4.20 L (4.30-5.90) m/uL Hgb 12.2 L (13.0-17.5) gm/dL Hct 37.8 L (39.0-53.0) % MCV 89.9 (80.0-100.0) fL MCH 29.1 (25.0-35.0) pg MCHC 32.3 (31.0-37.0) g/dL RDW 13.2 (11.5-15.5) % Plt Count 273 (150-450) k/uL MPV 6.8 Neutrophils % 89 % Lymphocytes % 7 % Monocytes % 2 % Eosinophils % 0 % Basophils % 1 % Neutrophils # 4.1 (1.3-7.7) k/uL Lymphocytes # 0.3 L (1.0-4.8) k/uL Monocytes # 0.1 (0-1.0) k/uL Eosinophils # 0.0 (0-0.7) k/uL Basophils # 0.0 (0-0.2) k/uL Sodium 138 (137-145) mmol/L Potassium 4.4 (3.5-5.1) mmol/L Chloride 103 (98-107) mmol/L Carbon Dioxide 27 (22-30) mmol/L Anion Gap 8 mmol/L BUN 10 (9-20) mg/dL Creatinine 0.69 (0.66-1.25) mg/dL Est GFR (CKD-EPI)AfAm >90 (>60 ml/min/1.73 sqM) Est GFR (CKD-EPI)NonAf >90 (>60 ml/min/1.73 sqM) Glucose 138 H (74-99) mg/dL Plasma Lactic Acid Beau 0.9 (0.7-2.0) mmol/L Calcium 9.7 (8.4-10.2) mg/dL Total Bilirubin 0.3 (0.2-1.3) mg/dL AST 31 (17-59) U/L ALT 25 (4-49) U/L Alkaline Phosphatase 61 (38-126) U/L Total Protein 6.7 (6.3-8.2) g/dL Albumin 4.1 (3.5-5.0) g/dL Amylase 60 (30-110) U/L Lipase 23 (23-300) U/L Urine Color Urine Appearance (Clear) Urine pH (5.0-8.0) Ur Specific [place] (1.001-1.035) Urine Protein (Negative) Urine Glucose (UA) (Negative) Urine Ketones (Negative) Urine Blood (Negative) Urine Nitrite (Negative) Urine Bilirubin (Negative) Urine Urobilinogen (<2.0) mg/dL Ur Leukocyte Esterase (Negative) Urine Opiates Screen (NotDetected) Ur Oxycodone Screen (NotDetected) Urine Methadone Screen (NotDetected) Ur Barbiturates Screen (NotDetected) U Tricyclic Antidepress (NotDetected) Ur Phencyclidine Scrn (NotDetected) Ur Amphetamines Screen (NotDetected) U Methamphetamines Scrn (NotDetected) U Benzodiazepines Scrn (NotDetected) Urine Cocaine Screen (NotDetected) U Marijuana (THC) Screen (NotDetected) Influenza Type A (PCR) (Not Detectd) Influenza Type B (PCR) (Not Detectd) RSV (PCR) (Not Detectd) SARS-CoV-2 (PCR) (Not Detectd) 04/22/24 04/22/24 Range/Units 16:03 16:15 WBC (3.8-10.6) k/uL RBC (4.30-5.90) m/uL Hgb (13.0-17.5) gm/dL Hct (39.0-53.0) % MCV (80.0-100.0) fL MCH (25.0-35.0) pg MCHC (31.0-37.0) g/dL RDW (11.5-15.5) % Plt Count (150-450) k/uL MPV Neutrophils % % Lymphocytes % % Monocytes % % Eosinophils % % Basophils % % Neutrophils # (1.3-7.7) k/uL Lymphocytes # (1.0-4.8) k/uL Monocytes # (0-1.0) k/uL Eosinophils # (0-0.7) k/uL Basophils # (0-0.2) k/uL Sodium (137-145) mmol/L Potassium (3.5-5.1) mmol/L Chloride (98-107) mmol/L Carbon Dioxide (22-30) mmol/L Anion Gap mmol/L BUN (9-20) mg/dL Creatinine (0.66-1.25) mg/dL Est GFR (CKD-EPI)AfAm (>60 ml/min/1.73 sqM) Est GFR (CKD-EPI)NonAf (>60 ml/min/1.73 sqM) Glucose (74-99) mg/dL Plasma Lactic Acid Beau (0.7-2.0) mmol/L Calcium (8.4-10.2) mg/dL Total Bilirubin (0.2-1.3) mg/dL AST (17-59) U/L ALT (4-49) U/L Alkaline Phosphatase (38-126) U/L Total Protein (6.3-8.2) g/dL Albumin (3.5-5.0) g/dL Amylase (30-110) U/L Lipase (23-300) U/L Urine Color Colorless Urine Appearance Clear (Clear) Urine pH 7.5 (5.0-8.0) Ur Specific [place] 1.013 (1.001-1.035) Urine Protein Negative (Negative) Urine Glucose (UA) Negative (Negative) Urine Ketones Negative (Negative) Urine Blood Negative (Negative) Urine Nitrite Negative (Negative) Urine Bilirubin Negative (Negative) Urine Urobilinogen <2.0 (<2.0) mg/dL Ur Leukocyte Esterase Negative (Negative) Urine Opiates Screen Not Detected (NotDetected) Ur Oxycodone Screen Not Detected (NotDetected) Urine Methadone Screen Not Detected (NotDetected) Ur Barbiturates Screen Not Detected (NotDetected) U Tricyclic Antidepress Not Detected (NotDetected) Ur Phencyclidine Scrn Not Detected (NotDetected) Ur Amphetamines Screen Not Detected (NotDetected) U Methamphetamines Scrn Not Detected (NotDetected) U Benzodiazepines Scrn Not Detected (NotDetected) Urine Cocaine Screen Not Detected (NotDetected) U Marijuana (THC) Screen Not Detected (NotDetected) Influenza Type A (PCR) Not Detected (Not Detectd) Influenza Type B (PCR) Not Detected (Not Detectd) RSV (PCR) Not Detected (Not Detectd) SARS-CoV-2 (PCR) Not Detected (Not Detectd) Disposition Clinical Impression: Asthma exacerbation Disposition: HOME SELF-CARE Condition: Good Instructions (If sedation given, give patient instructions): Asthma (ED) Additional Instructions: Return to the emergency room for any new or worsening symptoms. Recommend a follow-up with your primary care provider for further evaluation Prescriptions: Fluticasone Nasal [place] [Flonase Nasal [place]] 2 spr EA NOSTRIL DAILY #16 gm Promethazine HCl [Phenergan Syrup] 5 ml PO BID #50 ml predniSONE 50 mg PO DAILY #5 tab Budesonide/Formoterol Fumarate [Symbicort 80-4.5 Mcg Inhaler] 1 puff INHALATION DAILY #1 each Is patient prescribed a controlled substance at d/c from ED?: No Referrals: Delfina Rosas MD [Primary Care Provider] - 1-2 days Time of Disposition: 17:19
[2024-04-22 16:31] LABS: Basophils % (A) 1 %; Eosinophils % (A) 0 %; HCT 37.8 % (39.0-53.0); HGB 12.2 gm/dL (13.0-17.5); Lymphocytes # (A) 0.3 k/uL (1.0-4.8); Lymphocytes % (A) 7 %; MCH 29.1 pg (25.0-35.0); MCHC 32.3 g/dL (31.0-37.0); MCV 89.9 fL (80.0-100.0); Mean Platelet Volume 6.8; Monocytes # (A) 0.1 k/uL (0-1.0); Monocytes % (A) 2 %; Neutrophils # (A) 4.1 k/uL (1.3-7.7); Neutrophils % (A) 89 %; Platelet Count 273 k/uL (150-450); RDW 13.2 % (11.5-15.5); WBC 4.6 k/uL (3.8-10.6)
[2024-04-22 16:37] LABS: Appearance,Urine Clear (Clear); Bilirubin,Urine Negative (Negative); Blood,Urine Negative (Negative); Color,Urine Colorless; Glucose,Urine (UA) Negative (Negative); Ketones,Urine Negative (Negative); Leukocyte Esterase,Urine Negative (Negative); Nitrite,Urine Negative (Negative); PH, Urine 7.5 (5.0-8.0); Protein,Urine Negative (Negative); Specific Gravity,Urine 1.013 (1.001-1.035); Urobilinogen,Urine <2.0 mg/dL (<2.0)
[2024-04-22] MEDS: KETOROLAC 15 MG/ML 1 ML VIAL IVP STA (16:51)
[2024-04-22] MEDS: methylPREDNISolone SOD SUCCI 125 MG/2 ML VIAL IV STA (16:52)
--- NOTE | 2024-04-22 16:54 | XR ---
EXAMINATION TYPE: XR chest 2V DATE OF EXAM: 04/22/2024 4:39 PM CLINICAL INDICATION: Male, 33 years old with history of productive cough, wheezing, hx asthma; [facility] COMPARISON: Chest radiographs from 04/21/2024 TECHNIQUE: XR chest 2V Frontal view of the chest. FINDINGS: Lungs/Pleura: There is no evidence of pleural effusion, focal consolidation, or pneumothorax. Pulmonary vascularity: Unremarkable. Heart/mediastinum: Cardiomediastinal silhouette is unremarkable. Musculoskeletal: No acute osseous pathology. IMPRESSION: No acute cardiopulmonary disease/process. [facility] Giulia Kwok, , 04/22/2024 4:52 PM
[2024-04-22 17:00] LABS: Amphetamine Screen,Urine Not Detected (NotDetected); Barbiturate Screen,Urine Not Detected (NotDetected); Benzodiazepines Screen,Urine Not Detected (NotDetected); Cocaine Screen,Urine Not Detected (NotDetected); Methadone Screen, Urine Not Detected (NotDetected); Opiate Screen,Urine Not Detected (NotDetected); Oxycodone Screen, Urine Not Detected (NotDetected); Phencyclidine Screen,Urine Not Detected (NotDetected); Tricyclic Antidepressant,Urine Not Detected (NotDetected); Urn Cannabinoid Scrn Not Detected (NotDetected)
[2024-04-22 17:00] LABS: ALT 25 U/L (4-49); AST 31 U/L (17-59); African American GFR (CKD) >90 (>60 ml/min/1.73 sqM); Albumin 4.1 g/dL (3.5-5.0); Alkaline Phosphatase 61 U/L (38-126); Amylase 60 U/L (30-110); Anion Gap 8 mmol/L; Blood Urea Nitrogen 10 mg/dL (9-20); Calcium 9.7 mg/dL (8.4-10.2); Carbon Dioxide 27 mmol/L (22-30); Chloride 103 mmol/L (98-107); Glucose 138 mg/dL (74-99); Lipase 23 U/L (23-300); Non-African American GFR(CKD) >90 (>60 ml/min/1.73 sqM); Potassium 4.4 mmol/L (3.5-5.1); Sodium 138 mmol/L (137-145); Total Bilirubin 0.3 mg/dL (0.2-1.3); Total Protein 6.7 g/dL (6.3-8.2)
[2024-04-22] MEDS: PROMETHAZINE 25 MG TAB PO STA (17:06)
[2024-04-22 17:40] VITALS: BP 136/82; PULSE 70; RESP 18
== END 2024-04-22 17:38 | disposition home or self-care (01) ==
LOC: EC 15:03
CPT/HCPCS: 36415; 71046; 80053; 80306; 81003; 82150; 83605; 83690; 85025; 87636; 96374; 96375; 99284